=== PATIENT | female | born 1960 | race Caucasian/White ===

== ENCOUNTER 2016-10-20 12:14 | Emergency (ER) | payer OTHER ==
[~2016-10-20] VITALS: Ht 157.5 cm; Wt 56.0 kg
[~2016-10-20 12:14] MED LIST: ACET500C5 PO; ALBU8.5H5 INH; AZIT250T94 PO; BECL8.7A INH; D-ME473S18 PO; IBUP-1542 PO; PRED20TA PO; PROM6.25 PO
[2016-10-20 12:25] VITALS: Ht 157.5 cm; Wt 56.0 kg
[2016-10-20] MEDS ORDERED: IPRATROPIUM (NEB) 0.5 MG/2.5 ML AMP HHN ONE (14:00)
[2016-10-20] MEDS ORDERED: ALBUTEROL 0.083% (NEB) 2.5 MG/3 ML AMP HHN ONE (14:00)
[2016-10-20] MEDS ORDERED: PRED20TA PO (14:09)
[2016-10-20] MEDS ORDERED: ALBU8.5H3 INH (14:09)
--- NOTE | 2016-10-20 15:50 | ERD ---
DATE OF SERVICE: 10/20/2016 HISTORY OF PRESENT ILLNESS: The patient is a 56-year-old female coming in complaining of a cough an d shortness of breath. The patient states that she was diagnosed with bacterial bronchitis 1.5 week s ago. She took antibiotics. She has completed her antibiotics. She has a history of asthma. She has been using her QVAR and albuterol inhaler with mild alleviation; however, she still continues t o have episodes of shortness of breath and wheezing. She does not have any fevers. No leg swelling . No sore throat. No runny nose. PAST MEDICAL HISTORY: Asthma. ALLERGIES TO MEDICATIONS: Denies. HOSPITALIZATIONS: Denies. SOCIAL HISTORY: Denies. REVIEW OF SYSTEMS: A 12-point review of systems was done. Refer to HPI for positives; all other sy stems negative. PHYSICAL EXAMINATION VITAL SIGNS: Temperature is 98.8, pulse 90, blood pressure is 133/74, respiratory rate 18, O2 sat 9 6% on room air. Pain intensity is 0/10. GENERAL: The patient is well-appearing, well-nourished, no acute distress. HEENT: Atraumatic. Conjunctivae are pink. Pupils equal, round, and reactive to light. There is no s cleral icterus. Tympanic membranes clear bilaterally. Oropharynx clear. No nystagmus or photophobia . CHEST: Clear to auscultation bilaterally. There are no rales, wheezes or rhonchi. HEART: Regular rate and rhythm. No murmurs, clicks, rubs or gallops. No S3 or S4. ABDOMEN: Soft, nontender and nondistended. Good bowel sounds. No rebound or guarding. No gross wilma tonitis. No gross organomegaly or masses. No Child sign or McBurney point tenderness. BACK: No midline or flank tenderness. SKIN: There is no apparent rash or petechia. The skin is warm and dry. EMERGENCY ROOM COURSE: The patient requested a breathing treatment in the ER. The patient received a breathing treatment in the ER. I did not feel there was indication for chest x-ray. The patient 's symptoms improved with the breathing treatment. DIAGNOSIS: Wheezing with history of bronchitis. MEDICAL DECISION MAKING: The patient's vital signs are stable. The patient's oxygen saturation is 96% on room air. The patient is nontoxic appearing and does not have retractions. There are no abn ormal breath sounds on auscultation. I did not feel the patient required further antibiotic treatme nt. We will give the patient's steroids with additional inhaler. DISCHARGE: The patient is discharged stable. The patient is given prescription for prednisone and albuterol and told to follow up with primary care within 1 to 2 days for reevaluation. The patient was told if symptoms progress or worsen to return to the ER. All other questions answered at time o f discharge. Discharge summary given at the time of departure. The patient understood and complied with plan. Dictated By: FLOYD MICHELLE for JEAN-CLAUDE JAIME/NTS Conf#: [id number] DID#: [id number]
== END 2016-10-20 14:52 | disposition home or self-care (01) ==
LOC: FTE 12:14
DX: J45.901 Unspecified asthma with (acute) exacerbation (principal); I10 Essential (primary) hypertension
CPT/HCPCS: 94664; Z7502; Z7610

== ENCOUNTER 2017-01-27 18:04 | Emergency (ER) | payer OTHER ==
[~2017-01-27] VITALS: Ht 147.3 cm; Wt 55.0 kg
[~2017-01-27 18:04] MED LIST changes: +ALBU8.5H3 INH
[2017-01-27 18:13] VITALS: Ht 147.3 cm; Wt 55.0 kg
[2017-01-27] MEDS ORDERED: IPRATROPIUM (NEB) 0.5 MG/2.5 ML AMP NEB STA (20:31)
[2017-01-27] MEDS ORDERED: ALBUTEROL 0.083% (NEB) 2.5 MG/3 ML AMP NEB STA (20:31)
--- NOTE | 2017-01-27 20:41 | ERD ---
ER Documentation Chief Complaint Date/Time DATE: 01/27/17 TIME: 20:38 Chief Complaint sore throat x 1 week HPI This a 56-year-old female who presents to the emergency department today complaining of sore throat for the past week. States that she also needs a breathing treatment as she has had an asthma flare and last took her inhaler 3 hours ago and feels short of breath. Denies any fevers or chills. ROS All systems reviewed and are negative except as per history of present illness. Medications Home Meds Active Scripts Acetaminophen* (Tylophen*) 500 Mg Capsule, 1 CAP PO Q6H Y for PAIN AND OR ELEVATED TEMP, #30 CAP Prov:FANI HUTSON PA-C 01/27/17 Ibuprofen* (Motrin*) 600 Mg Tab, 600 MG PO Q6, #30 TAB Prov:FANI HUTSON PA-C 01/27/17 Amoxicillin* (Amoxicillin*) 500 Mg Cap, 500 MG PO TID for 10 Days, CAP Prov:FANI HUTSON PA-C 01/27/17 Prednisone* (Prednisone*) 20 Mg Tab, 40 MG PO DAILY for 4 Days, TAB Prov:GO EASON PA-C 10/20/16 Albuterol Sulfate* (Proair HFA*) 8.5 Gm Hfa.aer.ad, 2 PUFF INH Q4, #1 INHALER Prov:GO EASON PA-C 10/20/16 Ibuprofen* (Motrin*) 600 Mg Tab, 600 MG PO Q6, #30 TAB Prov:JOSELYN SINGER 10/06/16 Dextromethorphan Hb-Promethazine Hcl (Promethazine DM Syrup) 473 Ml Syrup, 10 ML PO Q6H Y for COUGH, #4 OZ Prov:JOSELYN SINGER 10/06/16 Azithromycin* (Zithromax*) 250 Mg Tablet, 250 MG PO .STEPHANIE DIRECTED, #6 TAB TAKE 500 MG (2 TABS) THE FIRST DAY THEN 250 MG (1 TAB) DAYS 2-5 Prov:JOSELYN SINGER 10/06/16 Promethazine Hcl* (Phenergan* Liq) 6.25 Mg/5 Ml Syrup, 6.25 MG PO Q6H Y for COUGH, #4 OZ Prov:PERCY GILMORE PA-C 04/21/16 Prednisone* (Prednisone*) 20 Mg Tab, 40 MG PO DAILY for 4 Days, TAB Prov:PERCY GILMORE PA-C 04/21/16 Acetaminophen* (Tylophen*) 500 Mg Capsule, 1 CAP PO Q6H Y for PAIN AND OR ELEVATED TEMP, #20 CAP Prov:PERCY GILMORE PA-C 04/21/16 Ibuprofen* (Motrin*) 600 Mg Tab, 600 MG PO Q6, #20 TAB Prov:PERCY GILMORE PA-C 10/06/15 Beclomethasone Dip* (Qvar 40*) 7.3 Gm Inha, 1 PUFF INH BID, #1 INHALER Prov:PERCY GILMORE PA-C 10/06/15 Albuterol Sulfate* (Albuterol Sulfate* HFA) 8.5 Gm Hfa.aer.ad, 1-2 PUFF INH Q4 Y for SHORTNESS OF BREATH, #1 EA Prov:PERCY GILMORE PA-C 10/06/15 Prednisone* (Prednisone*) 20 Mg Tab, 40 MG PO DAILY for 4 Days, TAB Prov:PERCY GILMORE PA-C 10/06/15 Azithromycin* (Zithromax*) 250 Mg Tablet, 250 MG PO .ZPACK DIRECTED, #6 TAB TAKE 500 MG (2 TABS) THE FIRST DAY THEN 250 MG (1 TAB) DAYS 2-5 Prov:PERCY GILMORE PA-C 10/06/15 Allergies Allergies: Coded Allergies: No Known Allergy (Unverified , 10/06/15) PMhx/Soc History of Surgery: No Anesthesia Reaction: No Hx Neurological Disorder: No Hx Respiratory Disorders: Yes (ASTHMA) Hx Cardiac Disorders: Yes (HTN) Hx Psychiatric Problems: No Hx Miscellaneous Medical Probl: No Hx Alcohol Use: No Hx Substance Use: No Hx Tobacco Use: No Smoking Status: Unknown if ever smoked Physical Exam Vitals Vital Signs Date Time Temp Pulse Resp B/P Pulse Ox O2 Delivery O2 Flow Rate FiO2 01/27/17 20:43 88 20 94 21 01/27/17 18:13 96.9 96 20 133/80 96 Physical Exam Const: No acute distress, talkative Head: Atraumatic Eyes: Normal Conjunctiva ENT: Ears TMs normal. Nose no drainage. Throat with erythema and tonsillar exudate right side Neck: Full range of motion..~ No meningismus. Resp: Clear to auscultation bilaterally. No absent breath sounds. Very faint wheeze left-sided lower lung field Cardio: Regular rate and rhythm, no murmurs Skin: No petechiae or rashes Neur: Awake and alert Psych: Normal Mood and Affect Results 24 hrs Current Medications Medications (Trade) Dose Ordered Sig/Mela Route PRN Reason Start Time Stop Time Status Last Admin Dose Admin Albuterol (Proventil 0.083% (Neb)) 5 mg ONCE STAT NEB 01/27/17 20:31 01/27/17 20:32 DC 01/27/17 20:42 Ipratropium [place] (Atrovent 0.02% (Neb)) 0.5 mg ONCE STAT NEB 01/27/17 20:31 01/27/17 20:32 DC 01/27/17 20:42 Ibuprofen (Motrin) 800 mg ONCE ONCE PO 01/27/17 21:00 01/27/17 21:01 Procedures/MDM This a 56-year-old female who presents the emergency department today for sore throat for the past week. On physical exam patient had tonsillar exudate. Patient symptoms at this time is consistent with strep pharyngitis. I have low suspicion for peritonsillar abscess, retropharyngeal abscess, otitis media, PNA , sinusitis, abscess, meningitis, sepsis, or other acute infectious bacterial process. Patient did have some very faint wheezing on the left lower lung base. She was requesting breathing treatment. Patient is afebrile and otherwise well- appearing. She is not tachycardic. Her oxygen saturation is 96%. She is in no acute distress. I do not feel that she requires further workup or imaging at this time. Patient was given a breathing treatment and reported feeling better. Patient was given Motrin here in the emergency department. Patient be given a prescription for amoxicillin, Motrin, Tylenol. Patient indicated she did not need refills on her asthma medications. At this time the patient is stable for discharge and outpatient management. They should follow up with their PCP in the next 1-2. They may return to the emergency department sooner if symptoms persist or worsen. Patient understood and agreed with the plan. Departure Diagnosis: Primary Impression: Strep pharyngitis Additional Impression: Asthma Asthma severity: unspecified severity Asthma complication type: uncomplicated Qualified Code: J45.909 - Uncomplicated asthma, unspecified asthma severity Condition: Fair FANI HUTSON PA-C Jan 27, 2017 20:41
[2017-01-27] MEDS ORDERED: IBUP-1542 PO (20:44)
[2017-01-27] MEDS ORDERED: AMO500 PO (20:44)
[2017-01-27] MEDS ORDERED: ACET500C5 PO (20:44)
[2017-01-27] MEDS ORDERED: IBUPROFEN 800 MG TAB PO ONE (21:00)
[2017-01-27 21:03] VITALS: RESP 20; TEMP 98
== END 2017-01-27 21:04 | disposition home or self-care (01) ==
LOC: E/R 18:04 → FTE 21:04
DX: J02.0 Streptococcal pharyngitis (principal); J45.901 Unspecified asthma with (acute) exacerbation; I10 Essential (primary) hypertension; R06.02 Shortness of breath
CPT/HCPCS: 94664; Z7610

== ENCOUNTER 2017-12-03 18:08 | Emergency (ER) | END 2017-12-03 20:08 | disposition home or self-care (01) ==

== ENCOUNTER 2017-12-11 15:05 | Emergency (ER) | END 2017-12-11 19:15 | disposition home or self-care (01) ==

== ENCOUNTER 2018-05-19 20:27 | Emergency (ER) | END 2018-05-20 00:28 | disposition home or self-care (01) ==

== ENCOUNTER 2018-06-07 04:08 | Emergency (ER) | END 2018-06-07 06:45 | disposition home or self-care (01) ==

== ENCOUNTER 2019-06-09 14:59 | Emergency (ER) | payer BC ==
[~2019-06-09] VITALS: Ht 149.9 cm; Wt 53.3 kg
[~2019-06-09 14:59] MED LIST changes: +ACET-141 PO; +ALBU18HF INHALATION; +ALBU2.5V3 NEB; -ALBU8.5H3 INH; +ALBU8.5H8 INH; +AMOX1TAB10 PO; +AMOX500C2 PO; +AZIT250T PO; -AZIT250T94 PO; +BECL10.62 IH; +BENZ-6 PO; +FLOV110 INHALATION; +HYDR-4011 PO; +LOSA1TAB22 PO; +NAPR-688 PO; +PROM5SYR2 PO; -PROM6.25 PO; +PROM6.256 PO
[2019-06-09 15:09] VITALS: BP 116/59; PULSE 88; RESP 20; Ht 149.9 cm; Wt 53.3 kg
[2019-06-09] MEDS ORDERED: predniSONE 20 MG TAB PO STA (15:44)
[2019-06-09] MEDS ORDERED: ALBUTEROL 0.083% (NEB) 2.5 MG/3 ML AMP NEB STA (15:44)
[2019-06-09] MEDS ORDERED: IPRATROPIUM (NEB) 0.5 MG/2.5 ML AMP NEB STA (15:44)
== END 2019-06-09 17:09 | disposition home or self-care (01) ==
LOC: FTE 14:59
DX: J45.21 Mild intermittent asthma with (acute) exacerbation (principal); I10 Essential (primary) hypertension
CPT/HCPCS: 94664; 99283; J7512; Z7610